=== PATIENT | male | born 1985 | race Caucasian/White ===

== ENCOUNTER → 2017-12-29 | Outpatient (CLI) | payer OTHER | LOC: M WUC 12:28 | DX: R05 Cough (principal) | CPT/HCPCS: 71046 ==

== ENCOUNTER 2018-06-30 16:50 | Emergency (ER) | payer OTHER ==
[~2018-06-30] VITALS: Ht 182.9 cm; Wt 100.0 kg
[2018-06-30 16:50] VITALS: BP 131/73
[2018-06-30] MEDS ORDERED: IBUP-1022 PO (16:54)
[2018-06-30] MEDS ORDERED: CLEO300C2 PO (17:22)
[2018-06-30] MEDS ORDERED: KETO10TAB PO (17:22)
[2018-06-30] MEDS ORDERED: LIDVISCBTL PO (17:22)
[2018-06-30] MEDS ORDERED: KETOROLAC TROMETHAMINE 10 MG TAB PO ONE (17:30)
[2018-06-30] MEDS ORDERED: LIDOCAINE VISCOUS 2% SOLN 15ML UDC TOP ONE (17:30)
== END 2018-06-30 17:32 | disposition home or self-care (01) ==
LOC: M ED 16:50
DX: K04.7 Periapical abscess without sinus (principal); K02.9 Dental caries, unspecified; Z87.891 Personal history of nicotine dependence